=== PATIENT | male | born 1980 | race Caucasian/White ===

== ENCOUNTER 2022-06-25 18:05 | Emergency (ER) | payer BC ==
[2022-06-25] MEDS ORDERED: Acetaminophen/HYDROcodone 325-5 MG Tab PO ONE (19:10)
== END 2022-06-25 19:31 | disposition home or self-care (01) ==
LOC: MW.ED 18:05
DX: S22.42XA Multiple fractures of ribs, left side, initial encounter for closed fracture (principal); W00.0XXA Fall on same level due to ice and snow, initial encounter
CPT/HCPCS: 71101; 99283; A9270

== ENCOUNTER 2024-02-13 09:10 | Emergency (ER) | payer OTHER, BC ==
[2024-02-13] MEDS: Diphtheria,Pertussis(Acell),Tetanus Vaccine 0.5 ML Syringe IM ONE (10:22)
[2024-02-13] MEDS: Lidocaine 1% PF 2 ML SDV INJECT ONE (10:26)
== END 2024-02-13 10:33 | disposition home or self-care (01) ==
LOC: MW.ED 09:10
DX: S61.210A Laceration without foreign body of right index finger without damage to nail, initial encounter (principal); F17.210 Nicotine dependence, cigarettes, uncomplicated; Z23 Encounter for immunization; X58.XXXA Exposure to other specified factors, initial encounter
CPT/HCPCS: 12001; 90471; 90715; 99282-25; 99283